=== PATIENT | male | born 1945 | race Caucasian/White ===

== ENCOUNTER 2016-09-10 10:37 | Emergency (ER) | payer MEDICARE ==
[~2016-09-10] VITALS: Ht 180.3 cm; Wt 85.9 kg
[2016-09-10] MEDS ORDERED: OXYcodone/APAP 5/325MG TABLET ONE ×2 (11:20→15:25)
[2016-09-10] MEDS ORDERED: LIDOCAINE 1%, 20ML ONE ×2 (11:20→12:00)
[2016-09-10] MEDS ORDERED: DIPH,PERTUSS(ACELL),TET VAC/PF 0.5 ML IM-VACC ONE ×2 (11:21→11:30)
[2016-09-10] MEDS ORDERED: OXYcodone/APAP 5/325MG TABLET PO ONE ×2 (11:30→15:30)
[2016-09-10] MEDS ORDERED: ASPI-515 PO (15:19)
[2016-09-10] MEDS ORDERED: ATOR80TA75 PO (15:19)
[2016-09-10] MEDS ORDERED: LISI-170 PO (15:19)
[2016-09-10] MEDS ORDERED: OMEG1000 PO (15:19)
[2016-09-10] MEDS ORDERED: CEFAZOLIN 1,000 MG ONE (15:25)
[2016-09-10] MEDS ORDERED: CEFAZOLIN 1,000 MG IM ONE (15:30)
[2016-09-10 16:03] VITALS: BP 170/98
== END 2016-09-10 16:04 | disposition home or self-care (01) ==
LOC: ED 12:54
DX: S62.18 Fracture of trapezoid [smaller multangular] (principal); S51.811A Laceration without foreign body of right forearm, initial encounter; Z23 Encounter for immunization; Z87.891 Personal history of nicotine dependence; W01.198A Fall on same level from slipping, tripping and stumbling with subsequent striking against other object, initial encounter; Y93.89 Activity, other specified; Y99.8 Other external cause status; Y92.091 Bathroom in other non-institutional residence as the place of occurrence of the external cause
CPT/HCPCS: 12032; 29125; 73110; 73130; 73200; 90471; 90715; 96372; 99284; J0690